=== PATIENT | male | born 1980 | race Hispanic/Latino ===

== ENCOUNTER 2023-05-09 05:14 | Emergency (ER) | payer OTHER, SELFPAY ==
[2023-05-09 05:18] VITALS: BP 149/96; PULSE 90; RESP 16; TEMP 36.3; O2SAT 94; BMI 36.3
--- OUTSIDE RECORDS SUMMARY | 2023-05-09 05:45 | XMS RPT_ITS | CCD ---
Author Name Unknown Address [id number] [place] [address] Organization [facility] Results Test Name Value Interpretation Reference Range Facil ity Summary Purpose Family History No Family History Records Found Advance Directives No Advanced Directives Records Found Additional Source Comments (unrecognized sect ion and content) No Status Records Found INFORMATION SOURCE (unrecogn ized section and content) FOR RECORDS PERTAINING TO PATIENTS WHO ARE OR HAVE BEEN ENROLLED IN A CHEMICAL DEPENDENCY/SUBSTANCEABUSE PROGRAM, SOME INFORMATION MAY BE OMITTED. This clinical summary was aggregated from multiple sources. Caution should be exercised in using it in the provision of clinical care. This summary normalizes information from multiple sources, and as a consequence, information in this document may materially change the coding, format and clinical context of patient data. In addition, data may be omitted in some cases. CLINICAL DECISIONS SHOULD BE BASED ON THE PRIMARY CLINICAL RECORDS. [facility]. provides no warranty or guarantee of the accuracy or completeness of information in this document.
--- NOTE | 2023-05-09 05:50 | RAD_ITS ---
INDICATION: fall EXAMINATION/TECHNIQUE: X-RAY - LEFT XR Ankle Min 3 Views 3 VIEWS COMPARISON: none FINDINGS: SOFT TISSUES: Anterolateral ankle edema. No radiopaque foreign body. BONES/JOINTS: No acute fracture or talar osteochondral defect... Normal alignment and mortise spacing. No sclerotic or destructive changes observed. RAD/Ankle min 3 Views IMPRESSION: Findings compatible with anterolateral ankle sprain. No acute osseous finding.. Electronically Signed: Evgeny Muñoz MD at 9:15 EST ,
--- NOTE | 2023-05-09 06:52 | EDS_ITS ---
HPI History of Present Illness Chief Complaint: Lower Extremity Injury Informant: patient Narrative Narrative: Patient is a 43-year-old male with past medical history of hypertension hyperlipidemia. 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 He states he heard a pop and sometimes had pain and swelling and making it difficult to walk. With concern for underlying fracture he comes in for evaluation [facility] Medical History (Updated 05/09/23 @ 07:[address] Lokesh Darden DO) Hyperlipemia Hypertension Social History (Updated 05/09/23 @ 05:23 by Rox Rodriguez) household members: spouse and family Smoking Status: Former smoker ROS ROS ED Constitutional Constitutional ED: Denies chills or fever(s) ENT ENT ED: Denies sore throat Cardiovascular Cardiovascular: Denies chest pain Respiratory/Chest Respiratory/Chest: Denies cough or dyspnea Gastrointestinal Gastrointestinal: Denies abdominal pain, diarrhea, nausea or vomiting Genitourinary Genitourinary ED: Denies dysuria Musculoskeletal Musculoskeletal: Reports other Details: Positive left ankle pain Integumentary Denies rash Neurologic Neurologic: Denies headache(s) or paresthesias Hematologic/Lymphatic Hematologic/Lymphatic: Denies easy bleeding or easy bruising EXAM Physical Exam Const Vital Signs: 05/09/23 05:18 05/09/23 07:14 Temperature 97.4 F L 97.8 F Temperature Source Oral Pulse Rate 90 87 Respiratory Rate 16 16 Blood Pressure 149/96 H 134/75 H Blood Pressure Mean 113 94 Pulse Ox 94 98 Oxygen Delivery Method Room Air Positive well nourished and well developed General Appearance ED: well developed HEENT HEENT Narrative: Normocephalic atraumatic Eyes PERRL and EOMs intact bilaterally Neck supple Resp normal respiratory effort and clear to auscultation bilaterally Cardio regular rate and regular rhythm Extremity Extremity Narrative: Left lower extremity is neurovascularly intact. Active range of motion decreased secondary to pain. There is mild soft tissue swelling noted mainly along the lateral malleolus without obvious bony deformity or joint effusion. Achilles tendon is intact and ankle ligaments are stable. There is pain on palpation mainly along the left lateral malleolus. No pain on palpation of the foot and no proximal calf pain or tibia pain. Remainder of the exam is normal Neuro oriented x3, CN's II-XII intact bilaterally and no sensory deficits noted Sensorium / Orientation: alert Psych mental status grossly normal Skin no rashes or lesions noted Skin Narrative: Soft tissue swelling along the left ankle as documented above without erythema warmth or ecchymosis MDM MDM MDM Narrative Medical decision making narrative: Patient presented to the ER mildly hypertensive which is consistent with his past medical history but otherwise stable vitals. He had a mechanical injury to his left ankle and concern is for ankle sprain versus ankle fracture versus dislocation. Secondary to this an x-ray was obtained. This revealed no acute bony injury. By exam his Achilles tendon is intact and he does not have any signs of stabilizing ligamentous tear going against a grade 2 or grade 3 ankle sprain. Therefore this time he was placed in a walking boot for stabilization but as he is closed and neurovascularly intact without fracture by x-ray or signs of ligamentous tear by exam there is no need for emergent orthopedic or podiatry consultation and he is otherwise safe for discharge History & Record Review Discussion w/independent historian: Patient Radiography Diagnostic Testing: Left ankle x-rays interpreted by the emergency medicine physician reveals no acute fracture dislocation or joint effusion Discharge Plan Triage Chief Complaint: Lower Extremity Injury ED Provider: Lokesh Darden Dx/Rx/DC Orders Clinical Impression: Left ankle sprain, Hypertension Instructions: Treating Ankle Sprains, ED Ankle Sprain (Adult) Primary Care Provider: Sanjay Craven Referrals: Sanjay Craven DO [Primary Care Provider] - Activity Restrictions/Additional Instructions: Please wear your walking boot to help stabilize your ankle and reduce pain and speed healing. Use Tylenol and/or Motrin [id number] for pain control and ice the area 2-3 times a day. Please return to the ER should you have any further concerns or worsening of symptoms Disposition Disposition: Home, Self Care Discharge Date/Time: 05/09/23 07:15
[2023-05-09 07:14] VITALS: BP 134/75; PULSE 87; RESP 16; TEMP 36.6; O2SAT 98
== END 2023-05-09 07:15 | disposition home or self-care (01) ==
PROVIDERS: Emergency Provider Emergency Medicine; Visit Provider Emergency Medicine
DX: S93.402A Sprain of unspecified ligament of left ankle, initial encounter (principal); I10 Essential (primary) hypertension; Z87.891 Personal history of nicotine dependence; X58.XXXA Exposure to other specified factors, initial encounter
CPT/HCPCS: 73610; 99283